=== PATIENT | female | born 2000 | race Caucasian/White ===

== ENCOUNTER 2021-11-21 20:23 | Emergency (ER) | payer BC ==
[~2021-11-21] VITALS: Ht 165.1 cm; Wt 117.0 kg
[2021-11-21 20:53] VITALS: BP 144/94
--- NOTE | 2021-11-21 20:59 | NUR ---
PATIENT TO [facility] [facility]
--- NOTE | 2021-11-21 22:29 | NUR ---
EXAMINED BY ERMD IN TRIAGE
[2021-11-21] MEDS ORDERED: KETOROLAC 30 MG/ML VIAL IM ONE (22:35)
[2021-11-21] MEDS ORDERED: IBUP-2213 PO (23:37)
[2021-11-21] MEDS ORDERED: ACET-8386 PO (23:37)
[2021-11-21] MEDS ORDERED: DICL100G5 TP (23:37)
[2021-11-22 00:18] VITALS: BP 144/94
--- NOTE | 2021-11-22 00:18 | NUR ---
Patient discharged with v/s stable. Written and verbal after care instructions given and explained. Patient alert, oriented and verbalized understanding of instructions. Ambulatory with steady gait. All questions addressed prior to discharge. ID band removed. Patient advised to follow up with PMD. Rx of HYDROCODON-ACETAMINOPHEN 5-325, DICLOFENAC SODIUM, AND IBUPROFEN given. Patient educated on indication of medication including possible reaction and side effects. Opportunity to ask questions provided and answered.
== END 2021-11-22 00:18 | disposition home or self-care (01) ==
LOC: MED 20:23
DX: G54.6 Phantom limb syndrome with pain (principal); Z89.511 Acquired absence of right leg below knee
CPT/HCPCS: 81025; 96372; 99283; J1885

== ENCOUNTER 2021-12-13 12:55 | Emergency (ER) | payer BC, MEDICAID ==
[~2021-12-13] VITALS: Ht 165.1 cm; Wt 116.6 kg
[~2021-12-13 12:55] MED LIST: ACET-8386 PO; DICL100G5 TP; IBUP-2213 PO
[2021-12-13 13:04] VITALS: BP 129/83
[2021-12-13 14:18] LABS: BASOPHILS % (AUTO) 0.3 % (0.0-2.0); EOSINOPHILS # (AUTO) 0.1 K/uL (0-0.4); EOSINOPHILS % (AUTO) 1.3 % (0.0-4.0); HEMATOCRIT 41.3 % (36-48); HEMOGLOBIN 13.9 g/dL (12.0-16.0); LYMPHOCYTES # (AUTO) 2.2 K/uL (2.5-16.5); LYMPHOCYTES % (AUTO) 31.1 % (20.5-51.1); MEAN CORPUSCULAR HEMOGLOBIN 30 pg (27-31); MEAN CORPUSCULAR HGB CONC 34 g/dL (33-37); MEAN CORPUSCULAR VOLUME 89.2 fL (80-94); MONOCYTES # (AUTO) 0.4 K/uL (0.8-1.0); MONOCYTES % (AUTO) 5.4 % (1.7-9.3); NEUTROPHILS # (AUTO) 4.3 K/uL (1.8-7.7); NEUTROPHILS % (AUTO) 61.9 % (42.2-75.2); PLATELET COUNT (AUTO) 272 K/uL (140-450); RED BLOOD CELL COUNT(AUTO) 4.63 MIL/uL (4.20-5.40); RED CELL DISTRIBUTION WIDTH 13.3 % (11.6-13.7)
[2021-12-13 14:37] LABS: ALBUMIN 3.6 g/dL (3.4-5.0); ANION GAP 15.3 (8-16); CARBON DIOXIDE 25.3 mmol/L (21-32); CREATININE 0.9 mg/dL (0.6-1.3); POTASSIUM 3.6 mmol/L (3.5-5.1); TOTAL BILIRUBIN 0.6 mg/dL (0.0-1.0)
[2021-12-13 15:42] VITALS: BP 129/83
[2021-12-13 15:46] LABS: PROTHROMBIN TIME 10.1 secs (10.8-13.4)
== END 2021-12-13 15:42 | disposition home or self-care (01) ==
LOC: MED 12:55
DX: K62.5 Hemorrhage of anus and rectum (principal); E11.9 Type 2 diabetes mellitus without complications
CPT/HCPCS: 36415; 71045; 80053; 85025; 85610; 85730; 86886; 86900; 86901; 99284; Q0092

== ENCOUNTER 2023-05-22 17:04 | Emergency (ER) | payer BC, MEDICAID ==
[~2023-05-22] VITALS: Ht 165.1 cm; Wt 115.7 kg
[~2023-05-22 17:04] MED LIST changes: -ACET-8386 PO; +ACET-8905 PO
[2023-05-22 17:23] VITALS: BP 128/67; PULSE 54; RESP 18; TEMP 97.9; O2SAT 99
[2023-05-22] MEDS ORDERED: ACETAMINOPHEN EXTRA STRENGTH 500 MG TAB PO ONE (20:25)
[2023-05-22] MEDS ORDERED: SUMAtriptan succinate 6 MG/0.5 ML VIAL SUBQ ONE ×2 (20:25→22:16)
[2023-05-22] MEDS ORDERED: METOCLOPRAMIDE 10 MG TAB PO ONE (20:25)
[2023-05-22 20:56] LABS: BASOPHILS # (AUTO) 0.1 K/uL (0.00-0.22); BASOPHILS % (AUTO) 0.7 % (0.0-2.0); EOSINOPHILS # (AUTO) 0.2 K/uL (0-0.4); EOSINOPHILS % (AUTO) 1.8 % (0.0-4.0); HEMATOCRIT 36.5 % (36-48); HEMOGLOBIN 12.1 g/dL (12.0-16.0); LYMPHOCYTES # (AUTO) 3.6 K/uL (2.5-16.5); MEAN CORPUSCULAR HEMOGLOBIN 28 pg (27-31); MEAN CORPUSCULAR HGB CONC 33 g/dL (33-37); MEAN CORPUSCULAR VOLUME 85.9 fL (80-94); MONOCYTES # (AUTO) 0.4 K/uL (0.8-1.0); NEUTROPHILS # (AUTO) 5.5 K/uL (1.8-7.7); NEUTROPHILS % (AUTO) 56.5 % (42.2-75.2); PLATELET COUNT (AUTO) 328 K/uL (140-450); RED BLOOD CELL COUNT(AUTO) 4.25 MIL/uL (4.20-5.40); RED CELL DISTRIBUTION WIDTH 15.3 % (11.6-13.7); WHITE BLOOD COUNT (AUTO) 9.7 K/uL (4.8-10.8)
[2023-05-22 21:21] LABS: ALBUMIN 3.6 g/dL (3.4-5.0); ANION GAP 13.3 (8-16); CALCIUM 8.9 mg/dL (8.5-10.1); CARBON DIOXIDE 28.4 mmol/L (21-32); POTASSIUM 3.7 mmol/L (3.5-5.1); TOTAL BILIRUBIN 0.3 mg/dL (0.0-1.0); TOTAL PROTEIN, SERUM 7.1 g/dL (6.4-8.2)
[2023-05-22] MEDS ORDERED: DEXAMETHASONE 10 MG/ML VIAL ONE (22:15)
[2023-05-22] MEDS ORDERED: METOCLOPRAMIDE 10 MG TAB ONE (22:16)
[2023-05-22] MEDS ORDERED: ACETAMINOPHEN EXTRA STRENGTH 500 MG TAB ONE (22:16)
[2023-05-22] MEDS ORDERED: DEXAMETHASONE 4 MG TAB ONE (22:19)
[2023-05-22] MEDS ORDERED: ACET-2619 PO (22:24)
[2023-05-22] MEDS ORDERED: ACET-9234 PO (22:24)
== END 2023-05-22 23:03 | disposition home or self-care (01) ==
LOC: MED 17:04
DX: R51.9 Headache, unspecified (principal); E11.9 Type 2 diabetes mellitus without complications; Z79.4 Long term (current) use of insulin; Z79.899 Other long term (current) drug therapy
CPT/HCPCS: 36415; 70460; 80053; 81025; 82948; 85025; 96372; 99285; J3030; J8597; Q9967; J1100

== ENCOUNTER 2023-07-09 13:26 | Emergency (ER) | payer MEDICAID ==
[~2023-07-09] VITALS: Ht 165.1 cm; Wt 117.0 kg
[~2023-07-09 13:26] MED LIST changes: +ACET-2619 PO; +ACET-9234 PO; +DICL100G32 TP; -DICL100G5 TP
[2023-07-09 13:53] VITALS: BP 111/68; PULSE 101; RESP 19; TEMP 98.2; O2SAT 98
[2023-07-09] MEDS ORDERED: LIDOCAINE MPF 1% 10 MG/ML VIAL INJ ONE (14:30)
[2023-07-09] MEDS ORDERED: CEPH500C16 PO (15:44)
[2023-07-09] MEDS ORDERED: IBUPROFEN 600 MG TAB PO ONE (15:45)
[2023-07-09 16:22] VITALS: BP 138/65; PULSE 80; RESP 18; TEMP 98; O2SAT 98
== END 2023-07-09 16:24 | disposition home or self-care (01) ==
LOC: MED 13:26
DX: L02.411 Cutaneous abscess of right axilla (principal); E11.9 Type 2 diabetes mellitus without complications; Z79.899 Other long term (current) drug therapy; Z79.2 Long term (current) use of antibiotics; Z79.1 Long term (current) use of non-steroidal anti-inflammatories (NSAID)
CPT/HCPCS: 10060; 99283; J2001

== ENCOUNTER 2023-07-11 09:46 | Emergency (ER) | payer MEDICAID ==
[~2023-07-11] VITALS: Ht 165.1 cm; Wt 116.6 kg
[~2023-07-11 09:46] MED LIST changes: +CEPH500C16 PO
[2023-07-11 10:07] VITALS: BP 109/73; PULSE 92; RESP 20; TEMP 98.7; O2SAT 98
[2023-07-11 10:40] VITALS: O2SAT 98
[2023-07-11 11:04] VITALS: BP 112/73; PULSE 89; RESP 20; TEMP 98.7; O2SAT 98
== END 2023-07-11 11:04 | disposition home or self-care (01) ==
LOC: MED 09:46
DX: L02.415 Cutaneous abscess of right lower limb (principal); Z79.899 Other long term (current) drug therapy
CPT/HCPCS: 99281

== ENCOUNTER 2023-07-15 14:18 | Emergency (ER) | payer MEDICAID ==
[~2023-07-15] VITALS: Ht 165.1 cm; Wt 116.1 kg
[2023-07-15 14:32] VITALS: BP 135/69; PULSE 86; RESP 14; TEMP 97.6; O2SAT 98
[2023-07-15 15:02] VITALS: BP 135/69; PULSE 86; RESP 14; TEMP 97.6; O2SAT 98
== END 2023-07-15 15:02 | disposition home or self-care (01) ==
LOC: MED 14:18
DX: Z48.01 Encounter for change or removal of surgical wound dressing (principal); L02.411 Cutaneous abscess of right axilla; E11.9 Type 2 diabetes mellitus without complications; Z79.899 Other long term (current) drug therapy; Z79.2 Long term (current) use of antibiotics; Z79.1 Long term (current) use of non-steroidal anti-inflammatories (NSAID)
CPT/HCPCS: 99281

== ENCOUNTER 2024-02-15 18:50 | Emergency (ER) | payer MEDICAID ==
[~2024-02-15] VITALS: Ht 165.1 cm; Wt 127.0 kg
[2024-02-15 19:12] VITALS: BP 123/74; PULSE 106; RESP 18; TEMP 96.9; O2SAT 97
[2024-02-15] MEDS: DEXAMETHASONE 10 MG/ML VIAL IM ONE (20:11)
[2024-02-15] MEDS: ACETAMINOPHEN 325 MG TAB PO ONE (20:11)
== END 2024-02-15 20:12 | disposition home or self-care (01) ==
LOC: MED 18:50
DX: J06.9 Acute upper respiratory infection, unspecified (principal); E11.9 Type 2 diabetes mellitus without complications; Z79.4 Long term (current) use of insulin; Z79.899 Other long term (current) drug therapy
CPT/HCPCS: 96372; 99283; J1100